=== PATIENT | female | born 1995 | race Caucasian/White ===

== ENCOUNTER 2024-08-10 11:00 | Inpatient (IN) | payer BC, SELFPAY ==
[2024-08-08 07:17] VITALS: BP 140/91
[2024-08-08 07:48] LABS: Urine Albumin 2+ (Neg - Trace); Urine Bilirubin Negative (Negative); Urine Character Clear (Clear); Urine Color Yellow; Urine Glucose Negative (Negative); Urine Ketone 1+ (Negative); Urine Leukocyte Negative (Negative); Urine Nitrite Negative (Negative); Urine Occult Blood 4+ (Negative); Urine Specific Gravity 1.015 (<1.030); Urine Urobilinogen Negative (Neg - 1+)
[2024-08-08 08:24] LABS: Urine Bacteria Few (Negative)
--- NOTE | 2024-08-08 09:07 | ED.GENMED ---
History of Present Illness
General
Chief Complaint: Abdominal Pain
Source: patient and spouse
Exam Limitations: none
Time Seen by Provider: 08/08/24 08:41
Nursing documentation reviewed up to this point in time: agreed with
History of Present Illness
History of Present Illness:
29-year-old female limited past medical history right upper abdominal pain after eating a rib restaurant 2 nights ago pain has been intermittent since then only able to eat a sandwich yesterday feels nauseous, moving her bowels okay, she has her
menstrual cycle now she is on control she has had appendectomy but no other prior abdominal surgeries does not drink or smoke
Past History
Past History
ED Past Medical History: None
ED Past Surgical History: Appendectomy
Social History
Tobacco: Non-smoker
Alcohol: None
Personal: Single
Living: with family
Employment: Employed
Review of Systems
Review of Systems
All Other Systems: Not applicable
Constitutional: Denies fever or fatigue
EENT: Reports no symptoms
Respiratory: Reports no symptoms
ABD/GI: Reports abdominal pain and nausea
: Reports no symptoms
Musculoskeletal: Reports no symptoms
Phy Exam
Physical Exam
Physical Exam:
Physical Exam
General: 29 female looks uncomfortable
Neck: No jaundice
Heart: s1/s2 regular rate and rhythm, no murmur. equal radial pulses.
Lungs: no acute respiratory distress. clear bilaterally
Abdomen: Obese tender in the right upper abdomen no lower abdominal
Neuro: alert and oriented. no focal neurological deficits
Skin: no rash
Psychiatric: well kept. interactive and cooperative
Extremities: no edema.
Course
Orders/Labs/Results
Orders:
Orders
08/08/24 07:21
Test Result ONCE
08/08/24 07:34
Urinalysis Reflex To Culture Urgent
Date Specimen was Collected: 08/08/24
Time Specimen was Collected: 07:21
Urine Microscopic Reflex Cult Urgent
08/08/24 08:58
IV Insert/Care/Rem.- Treatment PRN
0.9% Sodium Chloride 1000 ml [Nss] 1,000 ml IV BOLUS
HYDROmorphone [Dilaudid] 1 mg IV NOW STA
Ondansetron Injectable [Zofran] 4 mg IV NOW STA
US Abdomen Complete/Upper Urgent
Comment:
Reason For Exam: pain
08/08/24 10:19
CT Abd/pelvis W Iv Cont Urgent
Comment:
Reason For Exam: pain ? liver masses
08/08/24 10:27
CMP [Comprehensive Metabolic Panel] Urgent
Complete Blood Count/With Diff Urgent
HCG, Serum Qualitative Screen Urgent
Lipase Urgent
Abnormal Lab Results
08/08/24 08/08/24
07:34 10:27
WBC 15.4 H 10^3/uL
(4.8-10.8)
Abs Immat Gran (auto) 0.1 H 10^3/uL
(0-0.05)
Absolute Neuts (auto) 12.4 H 10^3/uL
(1.4-6.5)
Absolute Monos (auto) 1.2 H 10^3/uL
(0.1-0.6)
Immature Gran % 0.8 H %
(0-0.5)
Neutrophils % 80.4 H %
(42.2-75.2)
Lymphocytes % 10.4 L %
(20.5-51.1)
BUN 5 L mg/dl
(7-17)
Creatinine 0.4 L mg/dL
(0.6-1.0)
Glucose 181 H mg/dl
(70-99)
AST 297 H U/L
(14-36)
ALT 989 H* U/L
(0-35)
Urine Ketones 1+ A
(Negative)
Ur Occult Blood Reflex 4+ A
(Negative)
Urine RBC 7-10 A /HPF
(0-2)
Urine Bacteria (Reflex) Few A
(Negative)
Urine Albumin (Reflex) 2+ A
(Neg - Trace)
08/08/24 10:27
08/08/24 10:27
Vital Signs
Initial and Last Documented VS:
Initial Vital Signs
Temp Pulse Resp BP Pulse Ox
98.6 F 119 16 140/91 94
08/08/24 07:17 08/08/24 07:17 08/08/24 07:17 08/08/24 07:17 08/08/24 07:17
Last Documented Vital Signs
Temp Pulse Resp BP Pulse Ox
98.6 F 119 16 140/91 94
08/08/24 07:17 08/08/24 07:17 08/08/24 07:17 08/08/24 07:17 08/08/24 07:17
MDM/Problems Addressed
Differential Diagnosis Includes:
Biliary colic pancreatitis renal colic UTI SBO less likely
MDM/Problems Addressed:
Right upper quadrant pain
Chronic conditions affecting care: Previous abdomnial surgery
Acute Exacerbation and/or Progression of Chronic Illness: Previous abdomnial surgery
*Critical Care Note
Total Time (30-74mins, 75-104mins- exclusive of procedures): Not Applicable
Update Note
Update Note:
10:15 AM ultrasound report noted will check CT scan
11:30 AM patient feeling better updated her that there was lab abnormalities and ultrasound abnormality, and will get a CAT scan
12:[address] reviewed with radiology multiple atypical hemangiomas possible hemorrhage but no active bleed I did send a message to IR to have a look at it General Radiologist recommending an MR nonurgently, she was uncomfortable her labs are abnormal
white count is up LFTs I do believe she would benefit from admission message sent to hospital
ED Attending Note
-
Portions of this chart may have been created with voice recognition software.� Occasional wrong word or��sound alike� substitutions may have occurred due to the inherent limitations of voice recognition software.
Discharge Plan
Departure
Patient Disposition: Admit
Date of Disposition: 08/08/24
Time of Disposition: 12:49
Presentation/result/management discussed w/ accepting MD/DO: Hospitalist
Patient with high blood pressure during this ER visit?: No
Condition: Fair
Discharge Problem:
Abdominal pain
Referrals:
Catherine Mota MD [Family Provider, Family Practice]
Interventions
Interventions:
*Risk Screen - Suicide Last Done: 08/08/24 07:17
*Neglect/Abuse Screening Last Done: 08/08/24 07:17
Discharge Date and Time
Print Language: CANADIAN
[2024-08-08] MEDS: DILAUDID 1 MG IV ×2 (10:29→13:39)
[2024-08-08] MEDS: ZOFRAN 4 MG IV ×2 (10:30→13:40)
[2024-08-08] MEDS: NSS 1000 IV ×3 (10:32→15:54)
[2024-08-08 10:51] LABS: % Basophils 0.5 % (0-2); % Eosinophils 0.1 % (0-6); % Immature Granulocytes 0.8 % (0-0.5); % Lymphocytes 10.4 % (20.5-51.1); % Monocytes 7.8 % (1.7-9.3); % Neutrophils 80.4 % (42.2-75.2); Absolute Basophils 0.1 10^3/uL (0-0.2); Absolute Immature Granulocytes 0.1 10^3/uL (0-0.05); Absolute Lymphocytes 1.6 10^3/uL (1.2-3.4); Absolute Monocytes 1.2 10^3/uL (0.1-0.6); Absolute Neutrophils 12.4 10^3/uL (1.4-6.5); Hematocrit 39.5 % (37.0-47.0); Hemoglobin 13.4 g/dL (12.0-16.0); Mean Corp Hgb Conc. 33.9 g/dL (33.0-37.0); Mean Corpuscular Hgb 27.7 pg (27.0-31.0); Mean Corpuscular Volume 81.8 fL (81.0-99.0); Mean Platelet Volume 9.6 fL (7.4-10.4); Nucleated Red Blood Cells % 0 %; Platelet Count 306 10^3/uL (130-400); Red Blood Cell Count 4.83 10^6/uL (4.20-5.40); Red Cell Dist. Width 13.1 % (11.5-14.5); White Blood Cell Count 15.4 10^3/uL (4.8-10.8)
[2024-08-08 10:59] LABS: HCG, Serum Qualitative Screen Negative
[2024-08-08 11:00] LABS: AST (SGOT) 297 U/L (14-36); Albumin 4.6 g/dl (3.5-5.0); Alkaline Phosphatase 120 U/L (38-126); Blood Urea Nitrogen 5 mg/dl (7-17); Calcium 10.1 mg/dl (8.4-10.2); Carbon Dioxide 22 mmol/L (22-30); Chloride 105 mmol/L (98-107); Glucose 181 mg/dl (70-99); Lipase 30 U/L (23-300); Potassium 4.2 mmol/L (3.5-5.1); Sodium 139 mmol/L (135-145); Total Bilirubin 1.2 mg/dl (0.2-1.3); Total Protein 7.6 g/dl (6.3-8.2); eGFR > 60.00
[2024-08-08 11:42] LABS: ALT (SGPT) 989 U/L (0-35)
--- NOTE | 2024-08-08 12:55 | HPS.HSE ---
Family Physician
-
Family Physician: Catherine Mota
Chief Complaint
-
Abdominal Pain
History of Present Illness
Patient is a 29 y/o female without significant past medical history who presents with abdominal pain. Patient reports right upper quadrant pain that began after eating steak at a restaurant two days ago. She reports pain worsened last night
prompting her to come to the emergency department today. She reports associated nausea and vomiting. She denies recorded fevers but does not have a thermometer at home. She reports signficant episodes of flushing associated with vomiting. She
reports increased reflux symptoms for the past week. She denies diarrhea or constipation.
Medical History
Past Medical History
Past Medical History: Reports Other
Additional Past Medical History:
Hypothyroidism
Anxiety / Depression
Polycystic Ovarian Syndrome
Past Surgical History: Reports Other
Additional Past Surgical History:
Appendectomy
Social History
Tobacco: Non-smoker
Alcohol: None
Family History
Family History: Not pertinent
Allergies / Home Medications
Allergies reflects when Allergies were last updated in [facility].
Home Medications with original date entered in [facility]
Allergy/Medication List:
Allergies
Allergy/AdvReac Type Severity Reaction Status Date / Time
No Known Allergies Allergy Unverified 08/08/24 07:16
Review of Systems
-
History Source: Patient
Constitutional: Denies Fever
Respiratory: Denies Cough or Trouble Breathing
Cardiac: Denies Chest Pain or Palpitations
Abdomen/GI: Reports See HPI
: Denies Dysuria
Physical Exam
Vital Signs
Vital Signs
Temp Pulse Resp BP Pulse Ox
98.6 F 119 16 140/91 94
08/08/24 07:17 08/08/24 07:17 08/08/24 07:17 08/08/24 07:17 08/08/24 07:17
Physical Exam
General: Comfortable, Conversant and Obese
HEENT: Anicteric and Moist mucous membranes
Respiratory: Clear and Non Labored Respirations
Cardiac: S1/S2, Regular Rhythm and Tachycardia; No Murmur
GI: Soft, Non Distended and Tender (Right upper quadrant)
Rectal: Deferred by Provider
Genito-urinary: Clear Urine
Musculoskeletal: No Clubbing, No Cyanosis and No Edema
Skin: Warm and Dry
Neuro: Awake, Alert, Oriented and Nonfocal/grossly intact
Psych: Calm
Laboratory Results
-
08/08/24 10:27
08/08/24 10:27
Laboratory Results
Total Bilirubin 1.2 mg/dl (0.2-1.3) 08/08/24 10:27
AST 297 U/L (14-36) H 08/08/24 10:27
ALT 989 U/L (0-35) H* 08/08/24 10:27
Alkaline Phosphatase 120 U/L (38-126) 08/08/24 10:27
Lipase 30 U/L (23-300) 08/08/24 10:27
Abdomen US:
Mild hepatomegaly
Hepatic fatty infiltration.
Hypoechoic hepatic masses consistent with malignancy until proven otherwise. Clinical and laboratory correlation recommended.
Nonvisualization of the pancreas and spleen.
Abdomen/Pelvis CT:
No acute pathology of the abdomen or pelvis.
Enhancing hepatic lesions as described above. Differential diagnoses include hepatic hemangiomas or hepatic adenomas. Nonacute hemorrhage within the largest lesion cannot be excluded. MRI examination recommended
Hepatic fatty infiltration.
Hepatomegaly.
Data Reviewed
-
CT Scan: Report Reviewed by me
Ultrasound: Report Reviewed by me
Lab Data: Labs Reviewed by me
Impression/Plan
-
Right Upper Quadrant Abdominal Pain, unclear etiology
-History is more consistent with gallbladder pathology however imaging not suggestive of cholecystitis. Abdominal imaging reveal evidence of abnormality in the liver and radiology recommending MRI
-Continue NPO/IVFs
-Continue Zofran for nausea, and Dilaudid for pain
-Check Abdomen MRI
-If patient develops fever start empiric antibiotics
-Further plans based on MRI result
Hyperglycemia, no prior history of diabetes
-Check HgbA1c
Hypothyroidism
-Continue levothyroxine
DVT proph: SCDs
Code Status: Full Code
--- NOTE | 2024-08-08 13:11 | W.PN.UPDATE ---
Update Note
Progress Note Update
This note serves as an addendum to the H&P by power generation engineer VICENTA Maria Elena SARMIENTO
HPI
29F HX Polycystic ovarin syndrome on OCC, Hypothyroid on LT4 appendectomy seen at ER
- evaluation for Right upper abdominal pain after eating a rib restaurant 2 nights ago
- pain has been intermittent since then only able to eat a sandwich yesterday
- feels nauseous, moving her bowels okay
- has her menstrual cycle now she is on control
- Except appendectomy but no other prior abdominal surgeries
- Denied ETOH
ER Tx:
IV Dilaudid 1 mg
IV Zofran
NS wide open
Vital Signs
Temp Pulse Resp BP Pulse Ox
98.6 F 119 16 140/91 94
08/08/24 07:17 08/08/24 07:17 08/08/24 07:17 08/08/24 07:17 08/08/24 07:17
PE
Gen: Not toxic with pain distress , diaphoretic
HEENT: anicteric
Neck: supple
Lungs: CTA
Cor: RRR S1 S2
Abdomen: Very tender RUQ
CALCULUS TEACHER: AAO3
MS: no edema
Psych: appropriate mood and affect to pain
Data
Laboratory Tests
08/08/24
10:27
WBC 15.4 H
Hgb 13.4
Plt Count 306
BUN 5 L
Creatinine 0.4 L
eGFR > 60.00
Glucose 181 H
Urine HCG
US Abdomen Complete/Upper
- Mild hepatomegaly
- Hepatic fatty infiltration.
- Hypoechoic hepatic masses consistent with malignancy until proven otherwise. Clinical and laboratory correlation recommended.
- Nonvisualization of the pancreas and spleen.
Pending final CT AP report however IR read on CT AP report
- Multiple liver lesions, could be bleeding into an adenoma, or a nonhemorrhagic hepatic mass.
- No bleeding outside the liver, no need for embolization.
- Probably needs a nonemergent MRI abdomen to see what the lesions are.
- If there is some bleeding into a lesion, it should tamponade on its own.
- Could be hemangiomas or adenomas . Both benign
- Prob hemorrhagic products, willis suspicious looking one in the tip of the liver.
- Again, no active bleeding. Nothing for IR.
No prior hospitalist admission:
ASSESSMENT & PLAN
Abnormal AP CT concerning for Multiple liver lesions ? cyst with posable bleeding into an adenoma or a nonhemorrhagic hepatic mass.
Associated acute severe RUQ pain
Leucocytosis: Likely leukemoid reaction to hemophagic lesions
Tachy cardia due to hemorrhagic lesions
- Hold off ABX for now
- NPO for MRI
- IVF
- IV Dilaudid PRN and IV Zofrn PRN
- F/U VSS
- will get MRI abdomen w/wo
- Consultation is depend upon MRI findings
HX Polycystic ovarian syndrome on OCC pills
Hypothyroid on LT4
DVT Px: SCD
Full
IP MS
[2024-08-08 14:00] VITALS: BP 125/84
--- NOTE | 2024-08-08 14:05 | CM ---
Reviewed the chart notes and spoke with the patient and spouse at the bedside. The patient is admitted under observational status. The observational letter was provided and explained. There were no questions with regards to the letter. The
letter was scanned in to chart under emergency department scanned.
The patient resides with her spouse in a two story home with four steps to enter. The patient reports no DME/VN/SNF in the past. The patient confirmed her pharmacy of choice is the [facility]. continues to be available to
patient/family and is monitoring medical plan for needs at discharge.
Plan: Discharge plans will depend on the patient's progress.
[2024-08-08] MEDS: DILAUDID 0.5 MG IV (15:55)
[2024-08-08 16:46] VITALS: BP 137/83
--- NOTE | 2024-08-08 17:56 | PTCARENOTE ---
pt AOX3 22g R Hand with 125 NSS. 0.5mg Dilaudid for 5/10 pain RLQ. ice pack for headache. NPO. bed low, call gonzalez in reach
[2024-08-08] MEDS: TYLENOL 650 MG PO (18:08)
[2024-08-08 23:20] VITALS: BP 127/82
[2024-08-09] MEDS: DILAUDID 0.5 MG IV ×3 (02:44→19:39)
[2024-08-09] MEDS: NSS 1000 IV ×2 (05:39→12:01)
[2024-08-09] MEDS: SYNTHROID 50 MCG PO (05:39)
[2024-08-09 06:16] LABS: Hematocrit 36.8 % (37.0-47.0); Hemoglobin 12.2 g/dL (12.0-16.0); Mean Corp Hgb Conc. 33.2 g/dL (33.0-37.0); Mean Corpuscular Hgb 27.4 pg (27.0-31.0); Mean Corpuscular Volume 82.7 fL (81.0-99.0); Mean Platelet Volume 9.6 fL (7.4-10.4); Platelet Count 253 10^3/uL (130-400); Red Blood Cell Count 4.45 10^6/uL (4.20-5.40); White Blood Cell Count 12.8 10^3/uL (4.8-10.8)
[2024-08-09 06:39] LABS: ALT (SGPT) 654 U/L (0-35); AST (SGOT) 106 U/L (14-36); Albumin 3.7 g/dl (3.5-5.0); Alkaline Phosphatase 106 U/L (38-126); Blood Urea Nitrogen 4 mg/dl (7-17); Calcium 9.2 mg/dl (8.4-10.2); Carbon Dioxide 21 mmol/L (22-30); Chloride 110 mmol/L (98-107); Glucose 165 mg/dl (70-99); Potassium 3.9 mmol/L (3.5-5.1); Sodium 138 mmol/L (135-145); Total Protein 6.3 g/dl (6.3-8.2); eGFR > 60.00
--- NOTE | 2024-08-09 07:05 | W.PN.HOSP.TC ---
Today's Communication/Plan
-
Pending MRI result, possible discharge based on MRI.
Assessment / Plan
Assessment / Plan
Impression:
Patient is a 29 y/o female without significant past medical history who presents with abdominal pain. Patient reports right upper quadrant pain that began after eating steak at a restaurant two days ago. She reports pain worsened last night
prompting her to come to the emergency department today. She reports associated nausea and vomiting. She denies recorded fevers.
Abdomen US:
Mild hepatomegaly
Hepatic fatty infiltration.
Hypoechoic hepatic masses consistent with malignancy until proven otherwise. Clinical and laboratory correlation recommended.
Nonvisualization of the pancreas and spleen.
Abdomen/Pelvis CT:
No acute pathology of the abdomen or pelvis.
Enhancing hepatic lesions as described above. Differential diagnoses include hepatic hemangiomas or hepatic adenomas. Nonacute hemorrhage within the largest lesion cannot be excluded. MRI examination recommended
Hepatic fatty infiltration.
Hepatomegaly.
Patient mated to the hospitalist service kept n.p.o., MRI abdomen pending
Assessment/plan:
Right Upper Quadrant Abdominal Pain, unclear etiology
-History is more consistent with gallbladder pathology however imaging not suggestive of cholecystitis. Abdominal imaging reveal evidence of abnormality in the liver and radiology recommending MRI
-Continue NPO/IVFs
-Continue Zofran for nausea, and Dilaudid for pain
-Check Abdomen MRI
-If patient develops fever start empiric antibiotics
-Further plans based on MRI result
08/09
MRI done, results pending.
Abdominal pain improved, will start full liquid diet
New onset type 2 diabetes
- Hemoglobin A1c 6.9.
Insulin sliding scale.
Consider starting metformin 500 mg twice daily
Hypothyroidism
-Continue levothyroxine
CODE STATUS: Full code
DVT prophylaxis: SCDs
Diet: Full liquid diet.
Family communication: Discussed with family at bedside.
Disposition: Pending MRI result, possible discharge based on MRI.
Total time spent on today's encounter was 65 minutes which included time spent in counseling the patient/family regarding diagnosis and treatment plan as listed above, goals of care, and symptom management. Case was discussed with nursing staff,
specialists, and care coordinators/case management. All labs and imaging personally reviewed by me. Remainder the time spent in detailed review of previous records, lab data, imaging, and other medical provider documentation.
Anticipated Discharge: Within 24 hours
Subjective/Interval History
-
Date of Service: August 09, 2024
Patient seen and examined at bedside, family at bedside denies any chest pain or shortness of breath, improved abdominal pain, MRI done, pending result.
Objective Data
-
Labs:
Laboratory Results
08/09/24
06:00
WBC 12.8 H
Hgb 12.2
Hct 36.8 L
Plt Count 253
Sodium 138
Potassium 3.9
Chloride 110 H
Carbon Dioxide 21 L
BUN 4 L
Creatinine 0.4 L
Glucose 165 H
Calcium 9.2
Total Bilirubin 1.0
AST 106 H
ALT 654 H*
Alkaline Phosphatase 106
Vital Signs:
Vital Signs
Temp Pulse Resp BP Pulse Ox
98.5 F 109 16 127/82 97
08/08/24 23:20 08/08/24 23:20 08/08/24 23:20 08/08/24 23:20 08/08/24 23:20
I&O
08/08/24 08/09/24 08/10/24
06:59 06:59 06:59
Intake Total 1500 / 1500
Balance 1500 / 1500
Physical Exam
-
General: Well Developed, Well Nourished, No Apparent Distress and Comfortable
HEENT: Normocephalic, Atraumatic, Moist Mucous Membranes, No Ptosis, PERRLA and Nose Appears Normal
Respiratory: Clear to Auscultation and Non Labored Respirations
Cardiac: Regular Rhythm and S1/S2
Breast: Deferred by me
GI: Soft, Nondistended, Normal Bowel Sounds and Tender (Slight right upper quadrant)
Genito-urinary: No Costovertebral Tender
Musculoskeletal: No Clubbing, No Cyanosis and No Edema
Skin: Warm
Neuro: Awake, Alert, Oriented, AO x 3 and No Motor Deficits
Psych: Calm
Data Reviewed
-
Diagnostic Radiology: Image personally visualized and interpreted and Report Reviewed by me
CT Scan: Image personally visualized and interpreted and Report Reviewed by me
Ultrasound: Image personally visualized and interpreted and Report Reviewed by me
MRI: Image personally visualized and interpreted and Report Reviewed by me
Medical Tests (Nuc Med, Echo etc): Image personally visualized and interpreted and Report Reviewed by me
Labs: Labs Reviewed by me
Old Records: Reviewed
[2024-08-09 07:12] VITALS: BP 157/95
[2024-08-09] MEDS: PROTONIX 40 MG PO (08:15)
[2024-08-09] MEDS: LEXAPRO 10 MG PO (08:15)
[2024-08-09 09:51] LABS: Glycohemoglobin (HgbA1c) 6.9 % (4.0-5.6)
[2024-08-09 15:14] VITALS: BP 131/86
[2024-08-09 22:16] VITALS: BP 144/92
[2024-08-09] MEDS: TYLENOL 650 MG PO (22:18)
[2024-08-10] MEDS: NSS 1000 IV (01:26)
[2024-08-10] MEDS: SYNTHROID 50 MCG PO (06:15)
[2024-08-10 07:34] LABS: Hematocrit 36.2 % (37.0-47.0); Mean Corp Hgb Conc. 33.1 g/dL (33.0-37.0); Mean Corpuscular Hgb 27.4 pg (27.0-31.0); Mean Corpuscular Volume 82.6 fL (81.0-99.0); Mean Platelet Volume 9.4 fL (7.4-10.4); Platelet Count 278 10^3/uL (130-400); Red Blood Cell Count 4.38 10^6/uL (4.20-5.40); Red Cell Dist. Width 12.9 % (11.5-14.5); White Blood Cell Count 11.3 10^3/uL (4.8-10.8)
[2024-08-10 07:45] VITALS: BP 133/82
[2024-08-10 08:23] LABS: ALT (SGPT) 415 U/L (0-35); AST (SGOT) 38 U/L (14-36); Albumin 3.7 g/dl (3.5-5.0); Alkaline Phosphatase 105 U/L (38-126); Blood Urea Nitrogen 4 mg/dl (7-17); Calcium 9.3 mg/dl (8.4-10.2); Carbon Dioxide 24 mmol/L (22-30); Chloride 108 mmol/L (98-107); Glucose 155 mg/dl (70-99); Potassium 3.9 mmol/L (3.5-5.1); Sodium 140 mmol/L (135-145); Total Bilirubin 0.7 mg/dl (0.2-1.3); Total Protein 6.4 g/dl (6.3-8.2); eGFR > 60.00
--- NOTE | 2024-08-10 09:04 | CON.GI ---
Consultation
-
Date/Time Consultation Requested: 08/09/24 at 4pm
Date/Time Consultation Performed: 08/10/24 at 7:30am
Requesting Provider: michelle
Performing Provider: handy
Reason for Consultation: ruq pain
Medical History
Chief Complaint / HPI
Chief Complaint: abd pain
History of Present Illness:
This patient is a 29-year-old woman with a history of fatty liver and PCOS who is on control pills. She was eating at [employer] and was having steak 2 days ago when she had severe right upper quadrant pain. She states it worsened over the
next several days and she did have some initial nausea and vomiting. She did not have any fevers or dizziness. She does not have any history of gallstones or GI symptoms. She did however come to the emergency room. An ultrasound did show
hepatomegaly and fatty liver. An abdominal CT scan did not show any acute GI pathology but did show enhancing hepatic lesions with hemorrhage into the largest lesion possible. They did recommend an MRI which was done. An MRI did show enlarged
steatotic liver. Also on the inferior aspect of the right hepatic lobe measuring up to 6.8 cm there was a large meningioma containing some central internal blood products. There are additional smaller hemangiomas the largest of which measured 4.4
cm.. The impression however did state that there was a combination of hemangiomas and probable adenomas and recommended a follow-up MRI. On admission the patient had an elevated white count of 15.4 which is currently 11.3. Her hemoglobin which
initially was 13.4 is now 12. Her liver test showed an initial ALT of 9089 which is now 415 and an AST of 297 which is now 38.
Past Medical History
Past Medical History: Other (PCOS, fatty liver. Hypothyroidism, anxiety)
Past Surgical History: Appendectomy
Social History
Tobacco: Non-Smoker
Alcohol: None
Allergies / Home Medications
Allergy/AdvReac Type Severity Reaction Status Date / Time
No Known Allergies Allergy Unverified 08/08/24 07:16
�Medication �Instructions �Recorded
escitalopram oxalate 10 mg tablet 10 mg PO DAILY Depression 08/08/24
fexofenadine 180 mg tablet 180 mg PO DAILY Allergies 08/08/24
levonorgestrel-ethinyl estradiol 1 tab PO DAILY Hormonal Agent 08/08/24
0.1 mg-20 mcg tablet (Vienva)
levothyroxine 50 mcg tablet 50 mcg PO DAILY Thyroid 08/08/24
Review of Systems
-
All other systems: A 12 pt ROS was Negative except as stated above in HPI
Vital Signs
Temp Pulse Resp BP Pulse Ox
98.3 F 95 18 133/82 96
08/10/24 07:45 08/10/24 07:45 08/10/24 07:45 08/10/24 07:45 08/10/24 07:45
Physical Exam
Exam
General: No Apparent Distress
HEENT: Anicteric
Respiratory: Clear
Cardiac: S1/S2
GI: Soft and Tender (tender hepatomegaly)
Skin: Warm
Neuro: Awake, Alert and Oriented
Psych: Calm
Results
WBC 11.3 10^3/uL (4.8-10.8) H 08/10/24 07:24
Hgb 12.0 g/dL (12.0-16.0) 08/10/24 07:24
Hct 36.2 % (37.0-47.0) L 08/10/24 07:24
MCV 82.6 fL (81.0-99.0) 08/10/24 07:24
Plt Count 278 10^3/uL (130-400) 08/10/24 07:24
Absolute Neuts (auto) 12.4 10^3/uL (1.4-6.5) H 08/08/24 10:27
Sodium 140 mmol/L (135-145) 08/10/24 07:24
Potassium 3.9 mmol/L (3.5-5.1) 08/10/24 07:24
Chloride 108 mmol/L (98-107) H 08/10/24 07:24
Carbon Dioxide 24 mmol/L (22-30) 08/10/24 07:24
BUN 4 mg/dl (7-17) L 08/10/24 07:24
Creatinine 0.4 mg/dL (0.6-1.0) L 08/10/24 07:24
Calcium 9.3 mg/dl (8.4-10.2) 08/10/24 07:24
Total Bilirubin 0.7 mg/dl (0.2-1.3) 08/10/24 07:24
AST 38 U/L (14-36) H 08/10/24 07:24
ALT 415 U/L (0-35) H 08/10/24 07:24
Alkaline Phosphatase 105 U/L (38-126) 08/10/24 07:24
Lipase 30 U/L (23-300) 08/08/24 10:27
Assessment / Plan
-
This patient is a 29-year-old woman who has a history of PCOS, obesity and MASLD. She was admitted with acute right upper quadrant abdominal pain and was found to have a combination of probable hemangiomas and adenomas of the liver 1 that was 6.8
cm and had internal blood. She is on control for PCOS. She continues to have abdominal pain and does have abnormal transaminases that are improving:
For now would do the following:
1 she does know to stop oral contraceptive pills which can stimulate adenomas of the liver
2. I did speak with contact Dr. Valle who directed me to Dr. Dhillon. At a size of 6.8 cm her lesion does need to be treated either through IR embolization or surgery. Ideally her case would be discussed in the liver lesion multidisciplinary
conference which occurs each Saturday. Is unclear how urgent her treatment will need to be as she has already had bleeding into a liver lesion. Although it is read a hemangioma it is also possibly an adenoma. We did discuss repeating her scan
tomorrow to see if the lesion is stable. Her hemoglobin is stable and her liver tests are improving. If at any point it appears that they are not stable or liver tests worsen we would transfer her to [facility]. I do not
think it is safe for her to go home without explicit directions and follow-up with hepatology. I did also contact interventional radiology Dr. Marcial who states he would be able to embolize if needed. Dr. Pappas is now the Dr. Covering the liver
service for this week. We will be in contact with him if anything changes or the patient feels like she needs to be transferred.
I did spend over 20 minutes with both her and her explaining this. They both understand and she does know to stop her OCP. She does know that this needs to be treated to prevent further complications. We will come up with a plan based on
imaging done tomorrow to follow-up. Dr. Marcial preferred CAT scan which will be ordered.
- continue on clears for now.
Data Reviewed
-
Radiology: Report Reviewed by me and Discussed with Physician
CT Scan: Report Reviewed by me and Discussed with Physician
Ultrasound: Report Reviewed by me
MRI: Report Reviewed by me and Discussed with Physician
-
-
Thank you for consultation and allowing me to participate in the patient's care. Please call the certifed refrigeration operator GI physician during the after hours with any questions or concerns.
[2024-08-10] MEDS: LEXAPRO 10 MG PO (09:16)
[2024-08-10] MEDS: PROTONIX 40 MG PO (09:16)
[2024-08-10] MEDS: NSS IV (09:17)
[2024-08-10 09:34] LABS: Glucose - Point of Care 161 mg/dl (70-99)
--- NOTE | 2024-08-10 10:59 | CM ---
Patient seen at bedside in [address] [place] [address]. Patient with present. Patient stated that she has had many tests over the weekend. Patient anticipates conference with Madhav and is uncertain of next steps. Physician indicated that patient to be
transitioned to INP status. CM will continue to follow for discharge planning needs.
Plan; home with family; watch for VN needs
[2024-08-10] MEDS: GLUCOPHAGE 500 MG PO (11:04)
[2024-08-10] MEDS: AUGMENTIN 875 MG/125 MG 1 TABLET PO ×2 (11:05→20:00)
[2024-08-10 11:50] LABS: Glucose - Point of Care 146 mg/dl (70-99)
--- NOTE | 2024-08-10 12:16 | W.PN.HOSP.TC ---
Today's Communication/Plan
-
repeat Ct abdomen in am
Assessment / Plan
Assessment / Plan
Impression:
Patient is a 29 y/o female without significant past medical history who presents with abdominal pain. Patient reports right upper quadrant pain that began after eating steak at a restaurant two days ago. She reports pain worsened last night
prompting her to come to the emergency department today. She reports associated nausea and vomiting. She denies recorded fevers.
Abdomen US:
Mild hepatomegaly
Hepatic fatty infiltration.
Hypoechoic hepatic masses consistent with malignancy until proven otherwise. Clinical and laboratory correlation recommended.
Nonvisualization of the pancreas and spleen.
Abdomen/Pelvis CT:
No acute pathology of the abdomen or pelvis.
Enhancing hepatic lesions as described above. Differential diagnoses include hepatic hemangiomas or hepatic adenomas. Nonacute hemorrhage within the largest lesion cannot be excluded. MRI examination recommended
Hepatic fatty infiltration.
Hepatomegaly.
Patient mated to the hospitalist service kept n.p.o.,
MRI abdomen shows:
Combination of hepatic hemangiomas and probable adenomas, as described. Differential for some the lesions includes focal nodular hyperplasia. As a conservative measure, recommend follow-up MRI abdomen without and with Eovist contrast in 6-12 months.
Hepatomegaly and moderate diffuse hepatic steatosis.
Tolerated diet GI recommending repeat CT abdomen pelvis.
Assessment/plan:
Right Upper Quadrant Abdominal Pain, unclear etiology
-History is more consistent with gallbladder pathology however imaging not suggestive of cholecystitis. Abdominal imaging reveal evidence of abnormality in the liver and radiology recommending MRI
-Continue NPO/IVFs
-Continue Zofran for nausea, and Dilaudid for pain
-Check Abdomen MRI
-If patient develops fever start empiric antibiotics
-Further plans based on MRI result
08/09
MRI done, results pending.
Abdominal pain improved, will start full liquid diet
08/10
MRI abdomen shows:
Combination of hepatic hemangiomas and probable adenomas, as described. Differential for some the lesions includes focal nodular hyperplasia. As a conservative measure, recommend follow-up MRI abdomen without and with Eovist contrast in 6-12 months.
Hepatomegaly and moderate diffuse hepatic steatosis.
Tolerated diet GI recommending repeat CT abdomen pelvis
New onset type 2 diabetes
- Hemoglobin A1c 6.9.
Insulin sliding scale.
Consider starting metformin 500 mg twice daily
Hypothyroidism
-Continue levothyroxine
CODE STATUS: Full code
DVT prophylaxis: SCDs
Diet: diabetic
Family communication: Discussed with family at bedside.
Disposition: repeat Ct abdomen in am
Total time spent on today's encounter was 65 minutes which included time spent in counseling the patient/family regarding diagnosis and treatment plan as listed above, goals of care, and symptom management. Case was discussed with nursing staff,
specialists, and care coordinators/case management. All labs and imaging personally reviewed by me. Remainder the time spent in detailed review of previous records, lab data, imaging, and other medical provider documentation.
Anticipated Discharge: 24 - 48 hours
Subjective/Interval History
-
Date of Service: August 10, 2024
Patient seen and examined at bedside, still with right upper quadrant pain, had ran a fever last night, started Augmentin today.
Denies any chest pain or shortness of breath, recommending repeat CT abdomen and pelvis tomorrow.
Objective Data
-
Labs:
Laboratory Results
08/10/24
07:24
WBC 11.3 H
Hgb 12.0
Hct 36.2 L
Plt Count 278
Sodium 140
Potassium 3.9
Chloride 108 H
Carbon Dioxide 24
BUN 4 L
Creatinine 0.4 L
Glucose 155 H
Calcium 9.3
Total Bilirubin 0.7
AST 38 H
ALT 415 H
Alkaline Phosphatase 105
Vital Signs:
Vital Signs
Temp Pulse Resp BP Pulse Ox
98.3 F 95 18 133/82 96
08/10/24 07:45 08/10/24 07:45 08/10/24 07:45 08/10/24 07:45 08/10/24 07:45
I&O
08/09/24 08/10/24 08/11/24
06:59 06:59 06:59
Intake Total 1500 / 1500 3320 / 3320 480 / 480
Balance 1500 / 1500 3320 / 3320 480 / 480
Physical Exam
-
General: Well Developed, Well Nourished, No Apparent Distress and Comfortable
HEENT: Normocephalic, Atraumatic, Moist Mucous Membranes, No Ptosis, PERRLA and Nose Appears Normal
Respiratory: Clear to Auscultation and Non Labored Respirations
Cardiac: Regular Rhythm and S1/S2
Breast: Deferred by me
GI: Soft, Nondistended, Normal Bowel Sounds and Tender (Slight right upper quadrant)
Genito-urinary: No Costovertebral Tender
Musculoskeletal: No Clubbing, No Cyanosis and No Edema
Skin: Warm
Neuro: Awake, Alert, Oriented, AO x 3 and No Motor Deficits
Psych: Calm
Data Reviewed
-
Diagnostic Radiology: Image personally visualized and interpreted and Report Reviewed by me
CT Scan: Image personally visualized and interpreted and Report Reviewed by me
Ultrasound: Image personally visualized and interpreted and Report Reviewed by me
MRI: Image personally visualized and interpreted and Report Reviewed by me
Medical Tests (Nuc Med, Echo etc): Image personally visualized and interpreted and Report Reviewed by me
Labs: Labs Reviewed by me
Old Records: Reviewed
--- NOTE | 2024-08-10 14:56 | PTCARENOTE ---
08/10/2024 DIABETES EDUCATION CONSULT
I met with Josefa to review diabetes management. She states that her HbA1c in July 2023 was 6.1%, inpatient HbA1c is 6.9%. Patient states she also has PCOS.
I explained that HbA1c 6.9% is diagnostic of DM, can also be elevated due to current illness.
I educated on physiology of T2D, organ damage, managing with medications, monitoring BG, nutrition, activity, sleep and managing stress. I reinforced signs of hyperglycemia, hypoglycemia and hypoglycemia protocol; BS parameters and recommended HbA1c
goals, glucometer and CGM instructions, glucose tracker, medic alert bracelet and outpatient DSME program. Written material provided.
I educated and reviewed using Contour Next glucometer, member acknowledged understanding with a self demonstration of checking BS. Provided her with a Contour Next sample kit.
Discussed normal target glucose ranges and a monitoring schedule once daily fasting and alternating days 2 hours after different meals.
Encouraged patient to follow up with his PCP for post d/c appointment and to monitor medication and blood glucose levels. Provided list of endocrinologists if desired, to contact insurance company to verify in network status. Requested
prescription sent to pharmacy for test strips and lancets for back up SMBG. Patient verbalized understanding
--- NOTE | 2024-08-10 15:39 | W.PN.UPDATE ---
Update Note
Progress Note Update
discussed again with pt and . will keep same plan and repeat ct with IV contrast tomorrow. Dr. Riley who will be coming on GI service will d/w [place] hepatology how this should be handled so she has adequate evaluation and treatment in a
rapid fashion. she feels fine and is walking around
[2024-08-10] MEDS: DILAUDID 0.5 MG IV ×2 (16:33→21:10)
[2024-08-10 17:22] LABS: Glucose - Point of Care 138 mg/dl (70-99)
[2024-08-10 21:56] LABS: Glucose - Point of Care 121 mg/dl (70-99)
[2024-08-10 23:20] VITALS: BP 146/83
[2024-08-11] MEDS: DILAUDID 0.5 MG IV ×5 (02:57→22:33)
[2024-08-11 06:08] LABS: Hemoglobin 11.2 g/dL (12.0-16.0); Mean Corp Hgb Conc. 33.9 g/dL (33.0-37.0); Mean Corpuscular Hgb 28.1 pg (27.0-31.0); Mean Corpuscular Volume 82.9 fL (81.0-99.0); Mean Platelet Volume 9.5 fL (7.4-10.4); Platelet Count 298 10^3/uL (130-400); Red Blood Cell Count 3.98 10^6/uL (4.20-5.40); Red Cell Dist. Width 12.8 % (11.5-14.5); White Blood Cell Count 11.5 10^3/uL (4.8-10.8)
[2024-08-11] MEDS: SYNTHROID 50 MCG PO (06:12)
[2024-08-11 06:30] LABS: ALT (SGPT) 295 U/L (0-35); AST (SGOT) 35 U/L (14-36); Albumin 3.7 g/dl (3.5-5.0); Alkaline Phosphatase 96 U/L (38-126); Blood Urea Nitrogen 6 mg/dl (7-17); Calcium 9.5 mg/dl (8.4-10.2); Carbon Dioxide 23 mmol/L (22-30); Chloride 105 mmol/L (98-107); Glucose 154 mg/dl (70-99); Potassium 3.7 mmol/L (3.5-5.1); Sodium 140 mmol/L (135-145); Total Bilirubin 0.8 mg/dl (0.2-1.3); Total Protein 6.5 g/dl (6.3-8.2); eGFR > 60.00
--- NOTE | 2024-08-11 06:35 | W.PN.GI.CBS2 ---
Today's Communication / Plan
-
Please see assessment and plan for details.
Assessment / Plan
-
1. Right upper quadrant pain: With likely large hepatic adenoma with spontaneous bleeding, less likely hemangioma with bleeding, still with persistent pain, slight decrease in hemoglobin though LFTs improved, hemodynamically stable. As per
Taryn's note we will await CT scan this morning and I will discuss again with hepatology at the [facility] for definitive plan.
Subjective
Subjective
Date of Service: August 11, 2024
Patient feeling okay, still having right sided pain, slightly worse this morning requiring pain medicine. No nausea vomiting, fever or chills.
Objective
Data Reviewed
Laboratory Data:
Laboratory Results
08/11/24 05:47
08/11/24 05:47
Laboratory Results
Total Bilirubin 0.8 mg/dl (0.2-1.3) 08/11/24 05:47
AST 35 U/L (14-36) 08/11/24 05:47
ALT 295 U/L (0-35) H 08/11/24 05:47
Alkaline Phosphatase 96 U/L (38-126) 08/11/24 05:47
Lipase 30 U/L (23-300) 08/08/24 10:27
Vital Signs and I&O:
Vital Signs
Temp Pulse Resp BP Pulse Ox
98.4 F 103 17 146/83 94
08/10/24 23:20 08/10/24 23:20 08/10/24 23:20 08/10/24 23:20 08/10/24 23:20
I&O
08/09/24 08/10/24 08/11/24
06:59 06:59 06:59
Intake Total 1500 / 1500 3320 / 3320 960 / 960
Balance 1500 / 1500 3320 / 3320 960 / 960
Physical Exam
Physical Exam
General: NAD
Abdomen: normal bowel sounds, soft, mild right upper quadrant tenderness, no masses or bruits, no ascites
[2024-08-11 07:19] VITALS: BP 143/89
[2024-08-11 07:49] LABS: Glucose - Point of Care 131 mg/dl (70-99)
[2024-08-11] MEDS: AUGMENTIN 875 MG/125 MG 1 TABLET PO ×2 (09:37→20:42)
[2024-08-11] MEDS: LEXAPRO 10 MG PO (09:38)
[2024-08-11] MEDS: PROTONIX PO (09:38)
--- NOTE | 2024-08-11 11:05 | W.PN.UPDATE ---
Update Note
Progress Note Update
I reviewed the CT scan, discussed with patient and her mother as well as hepatology and the transfer center at the [facility]. Given decrease in hemoglobin, continued pain we will plan to transfer to the [facility], to
consider embolization, versus surgery versus continued observation. She is accepted, Dr. Pappas is accepting physician.
--- NOTE | 2024-08-11 11:43 | W.PN.HOSP.TC ---
Today's Communication/Plan
-
Transfer to [facility] once bed available
Assessment / Plan
Assessment / Plan
Impression:
Patient is a 29 y/o female without significant past medical history who presents with abdominal pain. Patient reports right upper quadrant pain that began after eating steak at a restaurant two days ago. She reports pain worsened last night
prompting her to come to the emergency department today. She reports associated nausea and vomiting. She denies recorded fevers.
Abdomen US:
Mild hepatomegaly
Hepatic fatty infiltration.
Hypoechoic hepatic masses consistent with malignancy until proven otherwise. Clinical and laboratory correlation recommended.
Nonvisualization of the pancreas and spleen.
Abdomen/Pelvis CT:
No acute pathology of the abdomen or pelvis.
Enhancing hepatic lesions as described above. Differential diagnoses include hepatic hemangiomas or hepatic adenomas. Nonacute hemorrhage within the largest lesion cannot be excluded. MRI examination recommended
Hepatic fatty infiltration.
Hepatomegaly.
Patient mated to the hospitalist service kept n.p.o.,
MRI abdomen shows:
Combination of hepatic hemangiomas and probable adenomas, as described. Differential for some the lesions includes focal nodular hyperplasia. As a conservative measure, recommend follow-up MRI abdomen without and with Eovist contrast in 6-12 months.
Hepatomegaly and moderate diffuse hepatic steatosis.
Tolerated diet GI recommending repeat CT abdomen pelvis.
Repeat CT abdomen pelvis showed stable hemangioma/adenoma.
GI recommends transfer to [facility] under service of Dr. Isidoro Pappas.
Assessment/plan:
Right Upper Quadrant Abdominal Pain, unclear etiology
-History is more consistent with gallbladder pathology however imaging not suggestive of cholecystitis. Abdominal imaging reveal evidence of abnormality in the liver and radiology recommending MRI
-Continue NPO/IVFs
-Continue Zofran for nausea, and Dilaudid for pain
-Check Abdomen MRI
-If patient develops fever start empiric antibiotics
-Further plans based on MRI result
08/09
MRI done, results pending.
Abdominal pain improved, will start full liquid diet
08/10
MRI abdomen shows:
Combination of hepatic hemangiomas and probable adenomas, as described. Differential for some the lesions includes focal nodular hyperplasia. As a conservative measure, recommend follow-up MRI abdomen without and with Eovist contrast in 6-12 months.
Hepatomegaly and moderate diffuse hepatic steatosis.
Tolerated diet GI recommending repeat CT abdomen pelvis
08/[address] abdomen pelvis showed stable hemangioma/adenoma.
GI recommends transfer to [facility] under service of Dr. Isidoro Pappas.
New onset type 2 diabetes
- Hemoglobin A1c 6.9.
Insulin sliding scale.
Consider starting metformin 500 mg twice daily
Hypothyroidism
-Continue levothyroxine
CODE STATUS: Full code
DVT prophylaxis: SCDs
Diet: diabetic
Family communication: Discussed with family at bedside.
Disposition: Transfer to [facility]
Total time spent on today's encounter was 65 minutes which included time spent in counseling the patient/family regarding diagnosis and treatment plan as listed above, goals of care, and symptom management. Case was discussed with nursing staff,
specialists, and care coordinators/case management. All labs and imaging personally reviewed by me. Remainder the time spent in detailed review of previous records, lab data, imaging, and other medical provider documentation.
Anticipated Discharge: Today
Subjective/Interval History
-
Date of Service: August 11, 2024
Patient seen and examined at bedside, mother at bedside denies any chest pain or shortness of breath, still with abdominal pain, no nausea, no vomiting, no diarrhea or constipation.
Objective Data
-
Labs:
Laboratory Results
08/11/24
05:47
WBC 11.5 H
Hgb 11.2 L
Hct 33.0 L
Plt Count 298
Sodium 140
Potassium 3.7
Chloride 105
Carbon Dioxide 23
BUN 6 L
Creatinine 0.4 L
Glucose 154 H
Calcium 9.5
Total Bilirubin 0.8
AST 35
ALT 295 H
Alkaline Phosphatase 96
Vital Signs:
Vital Signs
Temp Pulse Resp BP Pulse Ox
98.1 F 90 17 143/89 95
08/11/24 07:19 08/11/24 07:19 08/11/24 07:19 08/11/24 07:19 08/11/24 07:19
I&O
08/10/24 08/11/24 08/12/24
06:59 06:59 06:59
Intake Total 3320 / 3320 1919
Balance 3320 / 3320 1919
Physical Exam
-
General: Well Developed, Well Nourished, No Apparent Distress and Comfortable
HEENT: Normocephalic, Atraumatic, Moist Mucous Membranes, No Ptosis, PERRLA and Nose Appears Normal
Respiratory: Clear to Auscultation and Non Labored Respirations
Cardiac: Regular Rhythm and S1/S2
Breast: Deferred by me
GI: Soft, Nondistended, Normal Bowel Sounds and Tender (Slight right upper quadrant)
Genito-urinary: No Costovertebral Tender
Musculoskeletal: No Clubbing, No Cyanosis and No Edema
Skin: Warm
Neuro: Awake, Alert, Oriented, AO x 3 and No Motor Deficits
Psych: Calm
Data Reviewed
-
Diagnostic Radiology: Image personally visualized and interpreted and Report Reviewed by me
CT Scan: Image personally visualized and interpreted and Report Reviewed by me
Ultrasound: Image personally visualized and interpreted and Report Reviewed by me
MRI: Image personally visualized and interpreted and Report Reviewed by me
Medical Tests (Nuc Med, Echo etc): Image personally visualized and interpreted and Report Reviewed by me
Labs: Labs Reviewed by me
Old Records: Reviewed
--- NOTE | 2024-08-11 12:20 | CM ---
Reviewed the chart notes. Per note, waiting on a bed at [facility]. CM continues to be available to patient/family and is monitoring medical plan for needs at discharge.
Plan: Discharge to [facility] once a bed is secured.
[2024-08-11 12:39] LABS: Glucose - Point of Care 129 mg/dl (70-99)
[2024-08-11 15:08] VITALS: BP 140/85
[2024-08-11 17:58] LABS: Glucose - Point of Care 155 mg/dl (70-99)
[2024-08-11 20:44] VITALS: BP 144/84
[2024-08-11 21:46] LABS: Glucose - Point of Care 171 mg/dl (70-99)
[2024-08-11] MEDS: ZOFRAN 4 MG IV (22:34)
[2024-08-11 22:35] VITALS: BP 127/79
--- NOTE | 2024-08-11 23:51 | PTCARENOTE ---
rec'd call from [place]. bed avaliable at [facility] #9 room 931. report called in and s/w resident Carlos. Set up transport w/ Acute care [facility]. pt transported via ambulance at [id number]
--- NOTE | 2024-08-12 07:14 | W.DCSUMMARY ---
Discharge Summary
Discharge Data
Date of Admission: 08/10/24
Date of Discharge: 08/11/24
-
Pending Results: No
Hospital Course
Hospital course
Patient is a 29 y/o female without significant past medical history who presents with abdominal pain. Patient reports right upper quadrant pain that began after eating steak at a restaurant two days ago. She reports pain worsened last night
prompting her to come to the emergency department today. She reports associated nausea and vomiting. She denies recorded fevers.
Abdomen US:
Mild hepatomegaly
Hepatic fatty infiltration.
Hypoechoic hepatic masses consistent with malignancy until proven otherwise. Clinical and laboratory correlation recommended.
Nonvisualization of the pancreas and spleen.
Abdomen/Pelvis CT:
No acute pathology of the abdomen or pelvis.
Enhancing hepatic lesions as described above. Differential diagnoses include hepatic hemangiomas or hepatic adenomas. Nonacute hemorrhage within the largest lesion cannot be excluded. MRI examination recommended
Hepatic fatty infiltration.
Hepatomegaly.
Patient mated to the hospitalist service kept n.p.o.,
MRI abdomen shows:
Combination of hepatic hemangiomas and probable adenomas, as described. Differential for some the lesions includes focal nodular hyperplasia. As a conservative measure, recommend follow-up MRI abdomen without and with Eovist contrast in 6-12 months.
Hepatomegaly and moderate diffuse hepatic steatosis.
Tolerated diet GI recommending repeat CT abdomen pelvis.
Repeat CT abdomen pelvis showed stable hemangioma/adenoma.
GI recommends transfer to [facility] under service of Dr. Isidoro Pappas.
During hospitalization patient was treated from the following
Right Upper Quadrant Abdominal Pain, unclear etiology
-History is more consistent with gallbladder pathology however imaging not suggestive of cholecystitis. Abdominal imaging reveal evidence of abnormality in the liver and radiology recommending MRI
-Continue NPO/IVFs
-Continue Zofran for nausea, and Dilaudid for pain
-Check Abdomen MRI
-If patient develops fever start empiric antibiotics
-Further plans based on MRI result
08/09
MRI done, results pending.
Abdominal pain improved, will start full liquid diet
08/10
MRI abdomen shows:
Combination of hepatic hemangiomas and probable adenomas, as described. Differential for some the lesions includes focal nodular hyperplasia. As a conservative measure, recommend follow-up MRI abdomen without and with Eovist contrast in 6-12 months.
Hepatomegaly and moderate diffuse hepatic steatosis.
Tolerated diet GI recommending repeat CT abdomen pelvis
08/[address] abdomen pelvis showed stable hemangioma/adenoma.
GI recommends transfer to [facility] under service of Dr. Isidoro Pappas.
New onset type 2 diabetes
- Hemoglobin A1c 6.9.
Insulin sliding scale.
Consider starting metformin 500 mg twice daily
Hypothyroidism
-Continue levothyroxine
CODE STATUS: Full code
DVT prophylaxis: SCDs
Diet: diabetic
Family communication: Discussed with family at bedside.
Disposition: Transfer to [facility]
Total time spent on today's encounter was 40 minutes which included time spent in counseling the patient/family regarding diagnosis and treatment plan as listed above, goals of care, and symptom management. Case was discussed with nursing staff,
specialists, and care coordinators/case management. All labs and imaging personally reviewed by me. Remainder the time spent in detailed review of previous records, lab data, imaging, and other medical provider documentation.
Anticipated Discharge: Today
Discharge Plan
-
Patient Disposition: Acute [facility]
Discharge Orders:
Discharge Patient (As Directed); Ordered 08/11/24
Ordered By: Nic Almendarez
Discharge Date and Time
Discharge Date/Time: 08/11/24 23:50
Print Language: KOREAN
== END 2024-08-11 23:50 | disposition short-term general hospital (02) | DRG 392 ==
LOC: 2 SOUTH 11:00
PROVIDERS: Physician Assistant Medical; ADMITTING PHYSICIAN Internal Medicine; ATTENDING PHYSICIAN General Practice; CONSULT PHYSICIAN Internal Medicine; EMERGENCY PHYSICIAN Emergency Medicine; FAMILY PHYSICIAN Family Medicine
DX: D18.03 Hemangioma of intra-abdominal structures (principal); E03.9 Hypothyroidism, unspecified; D32.9 Benign neoplasm of meninges, unspecified; F32.A Depression, unspecified; F41.9 Anxiety disorder, unspecified; E28.2 Polycystic ovarian syndrome; E66.9 Obesity, unspecified; D72.823 Leukemoid reaction; K76.0 Fatty (change of) liver, not elsewhere classified; Z79.890 Hormone replacement therapy
CPT/HCPCS: 74177; 74183; 76700; 80053; 81003; 81015; 82962; 83036; 83690; 84703; 85025; 85027; 96361; 96374; 96375; 96376; 99285; A9575; Q9967